=== PATIENT | female | born 1945 | race Caucasian/White ===

== ENCOUNTER 2017-01-14 20:52 | Emergency (ER) | payer MEDICARE, BC ==
[~2017-01-14] VITALS: Ht 157.5 cm; Wt 75.5 kg
[~2017-01-14 20:52] MED LIST: APIX5TAB PO; ASCO10007 PO; ASPI-557 PO; CA C1TAB98 PO; CHOL10003 PO; FLEC100T2 PO; LEVO75TA50 PO; MULT-1243 PO; ONDA4TAB4 PO; OXYC1TAB8 PO; PRAV20TA44 PO
[2017-01-14 20:55] VITALS: Ht 157.5 cm; Wt 75.5 kg
--- OUTSIDE RECORDS SUMMARY | 2017-01-14 20:57 | XMS REPORT | Referral Summary ---
Author Author [facility] Organization [facility] Address Unknown Phone Unavailable Care Team Providers Care Space Planner Name Role Phone Jolie Martinez Primary Care Physician [phone] Encounter VC Date(s): 09/23/16 - 09/23/16 [facility] [address] [place] [id number] Discharge Disposition: 01-Home or Self Care Attending Physician: Jeimy Martinez DO Admitting Physician: Jeimy Martinez DO Vital Signs No data available for this section Problem List Condition Effective Dates Status Health Status Informant Allergic rhinitis Active (disorder)(Confirmed ) Allergic Active rhinitis(Confirmed) Arthritis(Confirmed) Resolved Atrial fibrillation Resolved (disorder)(Confirmed ) Atrial Resolved fibrillation(Confirm ed) Presence of Active permanent cardiac pacemaker(Confirmed) Dyslipidemia(Confirm Active ed) Gastroesophageal Active reflux disease (disorder)(Confirmed ) GERD Active (gastroesophageal reflux disease)(Confirmed) Goiter(Confirmed) Active Chronic Active anticoagulation(Conf irmed) Hay fever(Confirmed) Active Hyperlipidemia(Confi Resolved rmed) Hypertension(Confirm Resolved ed) Hypothyroidism Active (disorder)(Confirmed ) Hypothyroidism(Confi Active rmed) Mixed Active hyperlipidemia(Confi rmed) Paroxysmal Active a-fib(Confirmed) Thyroid Resolved disease(Confirmed) Vitamin D Resolved deficiency(Confirmed ) Allergies, Adverse Reactions, Alerts Substance Reaction Severity Status acetaminophen-HYDROcodone upset stomach Active penicillin Adverse Reaction Active sulfamethoxazole Adverse Reaction Active Medications Aspir 81 81 mg, Oral, Daily, 0 Refill(s) Start Date: 02/03/14 Status: Ordered Citracal + D 3 caps, Oral, Daily, 0 Refill(s) Start Date: 02/03/14 Status: Ordered Eliquis 5 mg oral tablet See Instructions, TAKE 1 TABLET BY MOUTH TWICE DAILY, # 60 tabs, 6 Refill(s), eRx: [id number], TAKE 1 TABLET BY MOUTH TWICE DAILY Start Date: 12/30/15 Status: Ordered flecainide 100 mg oral tablet See Instructions, TAKE 1& 1/2 TABLETS BY MOUTH EVERY 12 HOURS, # 90 tabs, 4 Refill(s), [id number], TAKE 1& 1/2 TABLETS BY MOUTH EVERY 12 HOURS Start Date: 06/21/16 Status: Ordered levothyroxine 75 mcg (0.075 mg) oral tablet 75 mcg 1 tabs, Oral, Daily, # 30 tabs, 0 Refill(s) Start Date: 05/31/16 Status: Ordered multivitamin See Instructions, Take 1 table po Daily, 0 Refill(s) Start Date: 02/03/14 Status: Ordered Homeland 5 mg-325 mg oral tablet 1 tabs, Oral, q6hr, as needed for pain, # 15 tabs, 0 Refill(s) Start Date: 08/10/16 Status: Ordered pravastatin 20 mg oral tablet See Instructions, 1 TABS ORAL DAILY, # 90 tabs, 0 Refill(s), [facility] [id number], NO FURTHER REFILLS; NEEDS APPT WITH DR. MARTINEZ, 1 TABS ORAL DAILY Start Date: 06/17/16 Status: Ordered Vitamin C 1000 mg oral tablet 1 tabs, Oral, Daily, # 30 tabs, 0 Refill(s) Start Date: 02/03/14 Status: Ordered Vitamin D3 1000 intl units oral capsule 2,000 Intl_Units 2 caps, Oral, Daily, 0 Refill(s) Start Date: 02/03/14 Status: Ordered Results No data available for this section Immunizations Given and Recorded Vaccine Date Status Refusal Reason tetanus/diphth/pertuss (Tdap) adult/adol 12/30/15 Given Procedures Procedure Date Related Diagnosis Body Site Mammogram 01/09/16 Knee replacement - right 12/2011 Colonoscopy1 03/11/10 Knee replacement - left 2007 Appendectomy Hysterectomy w/BSO Implantation of cardiac pacemaker knee scope, right Tonsillectomy 1Normal except hemorrhoids. Dr. Ward at [facility] [place] Social History Social History Type Response Smoking Status Never smoker Assessment and Plan No data available for this section
--- OUTSIDE RECORDS SUMMARY | 2017-01-14 20:58 | XMS REPORT | Referral Summary ---
Author Author [facility] Organization [facility] Address Unknown Phone Unavailable Care Team Providers Care Curve Saw Operator Name Role Phone Jolie Martinez Primary Care Physician [phone] Encounter VC Date(s): 09/23/16 - 09/23/16 [facility] [address] [place] [id number] Discharge Disposition: 01-Home or Self Care Attending Physician: Andre Tavares MD Vital Signs Most recent to 1 oldest [Reference Range]: Peripheral Pulse 71 bpm Rate [60-100 bpm] (09/23/16 2:44 PM) Blood Pressure 134/86 mmHg [90-140/60-90 mmHg] (09/23/16 2:44 PM) Problem List Condition Effective Dates Status Health [...] DAILY, # 60 tabs, 6 Refill(s), eRx: [facility] ([place]) [id number], TAKE 1 TABLET BY MOUTH TWICE DAILY Start Date: 12/30/15 Status: Ordered flecainide 100 mg oral tablet See Instructions, TAKE 1& 1/2 TABLETS BY MOUTH EVERY 12 HOURS, # 90 tabs, 4 Refill(s), eRx: [facility] ([place]) [id number], TAKE 1& 1/2 TABLETS BY MOUTH EVERY 12 HOURS Start Date: 06/21/16 Status: Ordered levothyroxine 75 mcg (0.075 mg) oral tablet 75 mcg 1 tabs, Oral, Daily, # 30 tabs, 0 Refill(s) Start Date: 05/31/16 Status: Ordered multivitamin See Instructions, Take 1 table po Daily, 0 Refill(s) Start Date: 02/03/14 Status: Ordered Redrock 5 mg-325 mg oral tablet 1 tabs, Oral, q6hr, as needed for pain, # 15 tabs, 0 Refill(s) Start Date: 08/10/16 Status: Ordered pravastatin 20 mg oral tablet See Instructions, 1 TABS ORAL DAILY, # 90 tabs, 0 Refill(s), Pharmacy: [facility] ([place]) [id number], NO FURTHER REFILLS; NEEDS APPT WITH DR. [...] Tonsillectomy 1Normal except hemorrhoids. Dr. Ward at [facility] [place] Social History Social History Type Response Smoking Status Never smoker Assessment and Plan No data available for this section
--- OUTSIDE RECORDS SUMMARY | 2017-01-14 20:58 | XMS REPORT | Continuity of Care Document ---
Author Author [facility] Organization [facility] Address Unknown Phone Unavailable Support Name Relationship Address Phone ROMA SALES MD Caregiver [address] [place] [address] Unavailable GLENN GARCIA DO Caregiver Unknown Unavailable MAGDALENA WILSON Next Of Kin [address] [place] [address] Insurance Providers Guarantor Clari Wilson Address [address] [place] [address] Email [email or web address] [email or web address] Policy Number [id number] Subscriber's Name Clari Wilson Relationship 18 Self Group Number [id number] Payer Medicare Policy Number [id number] Subscriber's Name Clari Wilson Relationship 18 Self Advance Directives Directive Response Recorded Date/Time Ordered Resuscitation Status Full Code 10/05/16 2:08pm Resuscitation Documents on File No 10/06/16 6:12am DPOA for Healthcare Only No 10/06/16 6:12am Living Will No 10/06/16 6:12am Problems Past Problems Medical Problem Onset Date Dislocation, shoulder, anterior Unknown Medications Current Home Medications Medication Dose Units Route Directions Days Qty Instructions Start Date Apixaban (Eliquis) 5 Mg Tablet 5 Mg Oral Twice A Day 08/09/16 Ascorbic Acid (Vitamin C) 1,000 Mg Tablet 1 Tab Oral Daily Aspirin (Aspir 81) 81 Mg Tablet. 81 Mg Oral Daily 08/09/16 Ca Carbonate/Vitamin D3/Vit K (Citracal Soft Chew) 1 Each Tab.chew 1 Tab Oral Daily 08/09/16 Cholecalciferol (Vitamin D) 1,000 Unit Capsule 2,000 Unit Oral Daily 12/14/10 Flecainide Acetate 100 Mg Tablet 100 Mg Oral Three Times A Day Levothyroxine Sodium (Levoxyl) 75 Mcg Tablet 75 Mcg Oral Daily 04 /11/11 Multivits-Min/Fa/Lycopene/Lut (Centrum Silver Tablet) 1 Each Tablet 1 Tab Oral Daily 08/09/16 Ondansetron Hcl (Zofran) 4 Mg Tablet 4 Mg Oral Every 6 Hours as needed for Nausea 10 Tablet 10/06/16 Oxycodone Hcl/Acetaminophen (Percocet 5-325 Mg Tablet) 5-325 Tablet 5-10 Mg Oral Every 4 Hours Prn 60 Tablet 10/06/16 Pravastatin Sodium (Pravachol) 20 Mg Tablet 20 Mg Oral Daily 07/16 Past Home Medications Medication Directions Ordered Status Azithromycin (Pp-Azithromycin Zpack) 1 Pack Pp, 1 Pack Oral Daily 10/06/11 Discontinued Diltiazem Hcl (Diltiazem Er) 120 Mg Cap.sr.12h, 120 Mg Oral Daily 10/14/11 Discontinued Ibuprofen (Advil) 200 Mg Tablet, 400 Mg Oral Every 4 Hours as needed for Pain 08/09/16 Discontinued Red Krell , 1 Bedtime 10/14/11 Discontinued Warfarin Sodium 5 Mg Tablet, 5 Mg Oral Daily 10/14/11 Discontinued Social History Social History Problem Response Recorded Date/Time Onset Date Status Reason for Hospitalization SHOULDER SCOPE 10/06/2016 9:54am Not Applicable Not Applicable Chewing Tobacco Status No 10/27/2012 3:51pm Not Applicable Not Applicable Hx Substance Use No 10/06/2016 6:04am Not Applicable Not Applicable Hx Alcohol Use Y 1 PER MONTH 10/06/2016 6:04am Not Applicable Not Applicable Has the pt used tobacco in the last 12 months No 10/06/2016 6:04am Not Applicable Not Applicable Query Response Start Date Stop Date Smoking Status Never smoker Hospital Discharge Instructions Instructions: Care Instructions: I was in the hospital because (patient own words): SHOULDER SCOPE Discharge Diet: Resume normal diet as tolerated. Discharge Activity: Please refer to Dr. Sales's postoperative instructions. Follow Up Appointments: Please refer to Dr. Sales's postoperative instructions. Pending Lab / Results: No Pending Lab Expected Signs/Symptoms: Please refer to Dr. Sales's postoperative instructions. Notify Physician If: Please refer to Dr. Sales's postoperative instructions. During Business Hours:: Please call our office at [phone]. After Business Hours:: Please call the hospital at [phone] and have the physician or the covering physician paged. Pain Management/Treatment: Please refer to Dr. Sales's postoperative instructions. Wound/Incision Care: Please refer to Dr. Sales's postoperative instructions. Condition at time of discharge: Good Plan of Care Discharge Date 10/06/16 10:25am Instructions/Education Provided [facility] Janneth Rotator Cuff Prescriptions See Medication Section Functional Status No functional status results. Allergies, Adverse Reactions, Alerts Allergen Type Severity Reaction Status Last Updated hydrocodone bit Adverse Reaction Mild UPSET STOMACH Active 10/05/16 Penicillin Adverse Reaction Severe RASH Active 10/05/16 Sulfa (Sulfonamide Antibiotics) Adverse Reaction Unknown Active 10/05/16 Immunizations Query Response on File Recorded Date/Time Hx Influenza Vaccination No 10/06/16 6:04am Hx Pneumococcal Vaccination No 10/06/16 6:04am Hx Influenza Vaccination No 10/06/16 6:04am Influenza Vaccine Hx NO 08/09/16 7:42pm Tdap Vaccine Hx NO 08/09/16 7:43pm Vital Signs Acute Vital Signs Vital Response Date/Time Temperature (Fahrenheit) 96.8 deg F (96.8 - 99.1) 10/06/2016 9:30am Temperature (Calculated Celsius) 36.53778 degrees C (36.0 - 37.3) 10/06/2016 9:30am Temperature Source Temporal 10/06/2016 9:30am Pulse Rate (adult) 76 bpm (60 - 100) 10/06/2016 10:20am Respiratory Rate 20 breaths/min (10 - 20) 10/06/2016 10:20am O2 Sat by Pulse Oximetry 94 % (90 - 100) 10/06/2016 10:20am Oxygen Delivery Method Room Air 10/06/2016 7:07am Oxygen Delivery Method Room Air 10/06/2016 10:20am Oxygen Flow Rate 4.00 L/min 10/06/2016 9:00am Blood Pressure 130/75 mm Hg 10/06/2016 10:20am Blood Pressure Source Automatic Cuff 10/06/2016 10:20am Height (Feet) 5 feet 10/06/2016 5:45am Height (Inches) 2.25 inches 10/06/2016 5:45am Weight (Kilograms) 73.200 kg 10/06/2016 5:45am Body Mass Index (BMI) 29.3 10/06/2016 5:45am Results No known relevant diagnostic tests, laboratory data and/or discharge summary. Procedures Procedure Status Date Provider(s) Treat shoulder dislocation Completed 08/09/16 ROMA SALES MD X-ray exam of shoulder Completed 08/09/16 X-ray exam of shoulder Completed 08/09/16 Ther/proph/diag iv inf init Completed 08/09/16 Tx/pro/dx inj new drug addon Completed 08/09/16 Tx/pro/dx inj new drug addon Completed 08/09/16 Tx/pro/dx inj same drug medical staff services coordinator Completed 08/09/16 Emergency dept visit Completed 08/09/16 [id number]"INJECTION, HYDROMORPHONE, UP TO 4 MG" Completed 08/09/16 [id number]"INJECTION, HYDROMORPHONE, UP TO 4 MG" Completed 08/09/16 [id number]"INJECTION, ONDANSETRON HYDROCHLORIDE, PER 1 MG" Completed 08/09/16 [id number]"INFUSION, NORMAL SALINE SOLUTION , 250 CC" Completed 08/09/16 [id number] FITTING AND ADJUSTMENT Completed 08/09/16 Injection for shoulder x-ray Completed 09/08/16 Ct upper extremity w/dye Completed 09/08/16 Needle localization by xray Completed 09/08/16 [id number]"HIGH OSMOLAR CONTRAST MATERIAL, 250-299 MG/ML IODINE Completed Shoulder arthroscopy Completed 10/06/16 ROMA SALES MD Encounters Encounter Location Arrival/Admit Date Discharge/Depart Date Attending Provider Departed Surgical Day Care [facility] 10/06/16 5:16am 10/06/16 10 :25am ROMA SALES MD Registered Clinic [facility] 09/08/16 12:49pm ROMA SALES MD Departed Emergency Room [facility] 08/09/16 7:27pm 08/09/16 10: 00pm YOVANNY FAM MD
--- OUTSIDE RECORDS SUMMARY | 2017-01-14 20:58 | XMS REPORT | Continuity of Care Document ---
Author Author [facility] Organization [facility] Address Unknown Phone Unavailable Allergies Medications Problems Procedures Results Encounters ACCT No. Visit Date/Time Discharge Status Pt. Type Provider Facility Loc./Unit Complaint [id number] 11/23/2013 11:25:00 11/23/2013 23 :59:59 CLS Outpatient [id number] 10/23/2013 09:46:00 10/23/2013 23 :59:59 CLS Outpatient [id number] 09/07/2013 14:47:00 09/07/2013 23 :59:59 CLS Outpatient [id number] 08/07/2013 07:53:00 08/07/2013 23 :59:59 CLS Outpatient
--- OUTSIDE RECORDS SUMMARY | 2017-01-14 20:58 | XMS REPORT | Referral Summary ---
Author Author [facility] Organization [facility] Address Unknown Phone Unavailable Care Team Providers Care Boiler Operator Helper Name Role Phone Jolie Martinez Primary Care Physician [phone] Encounter Date(s): 09/24/16 - 09/24/16 [facility], [address] [place] [id number] Discharge Diagnosis: Supraspinatus tendon tear Discharge Diagnosis: Chronic anticoagulation Discharge Diagnosis: Pre-op exam Discharge Diagnosis: Presence of permanent cardiac pacemaker Discharge Disposition: -Home or Self Care Attending Physician: Jeimy Martinez DO Admitting Physician: Jeimy Martinez DO Referring Physician: Milo Lagunas MD Vital Signs Most recent to 1 oldest [Reference Range]: Temperature Tympanic 36.8 degC [36.6-38.1 degC] (09/24/16 3:45 PM) Peripheral Pulse 83 bpm Rate [60-100 bpm] (09/24/16 3:45 PM) Blood Pressure 128/80 mmHg [90-140/60-90 mmHg] (09/24/16 3:45 PM) SpO2 97 % (09/24/16 3:45 PM) Problem List Condition Effective Dates Status [...] DAILY, # 60 tabs, 6 Refill(s), eRx: [facility] [id number], TAKE 1 TABLET BY MOUTH TWICE DAILY Start Date: 12/30/15 Status: Ordered flecainide 100 mg oral tablet See Instructions, TAKE 1& 1/2 TABLETS BY MOUTH EVERY 12 HOURS, # 90 tabs, 4 Refill(s), eRx: [facility] [id number], TAKE 1& 1/2 TABLETS BY MOUTH EVERY 12 HOURS Start Date: 06/21/16 Status: Ordered levothyroxine 75 mcg (0.075 mg) oral tablet 75 mcg 1 tabs, Oral, Daily, # 30 tabs, 0 Refill(s) Start Date: 05/31/16 Status: Ordered multivitamin See Instructions, Take 1 table po Daily, 0 Refill(s) Start Date: 02/03/14 Status: Ordered pravastatin 20 mg oral tablet See Instructions, 1 TABS ORAL DAILY, # 90 tabs, 0 Refill(s), Pharmacy: [facility] [id number], NO FURTHER REFILLS; NEEDS APPT WITH DR. MARTINEZ, 1 TABS ORAL DAILY Start Date: 06/17/16 Status: Ordered Vitamin C 1000 mg oral tablet 1 tabs, Oral, Daily, # 30 tabs, 0 Refill(s) Start Date: 02/03/14 Status: Ordered Vitamin D3 1000 intl units oral capsule 2,000 Intl_Units 2 caps, Oral, Daily, 0 Refill(s) Start Date: 02/03/14 Status: Ordered Results Hematology Most recent to 1 oldest [Reference Range]: WBC [4.8-10.8 9.0 10*3/uL 10*3/uL] (09/24/16 4:38 PM) RBC [4.00-5.20] 4.50 (09/24/16 4:38 PM) Hgb [12.0-16.0 12.9 gm/dL gm/dL] (09/24/16 4:38 PM) Hct [37.0-47.0 %] 40.9 % (09/24/16 4:38 PM) MCV [82.0-99.0 fL] 90.9 fL (09/24/16 4:38 PM) MCH [27.0-32.0 pg] 28.7 pg (09/24/16 4:38 PM) MCHC [32.0-36.0 31.5 gm/dL gm/dL] *LOW* (09/24/16 4:38 PM) RDW [11.5-14.5 %] 14.4 % (09/24/16 4:38 PM) Platelet [150-400 250 10*3/uL 10*3/uL] (09/24/16 4:38 PM) MPV [8.8-14.8 fL] 11.5 fL (09/24/16 4:38 PM) Immature 0.2 % Granulocytes (09/24/16 4:38 PM) [0.0-1.0 %] Neutrophils [51-75 55 % %] (09/24/16 4:38 PM) Lymphocytes [20-46 27 % %] (09/24/16 4:38 PM) Monocytes [4-11 %] 9 % (09/24/16 4:38 PM) Eosinophils [0-4 %] 7 % *HI* (09/24/16 4:38 PM) Basophils [0-2 %] 1 % (09/24/16 4:38 PM) Neutro Absolute 4.97 [1.90-7.00] (09/24/16 4:38 PM) Lymph Absolute 2.43 [0.80-3.30] (09/24/16 4:38 PM) Meagher Absolute 0.82 [0.30-1.00] (09/24/16 4:38 PM) Eos Absolute 0.61 [0.00-0.50] *HI* (09/24/16 4:38 PM) Baso Absolute 0.13 [0.00-0.20] (09/24/16 4:38 PM) Chemistry Most recent to 1 oldest [Reference Range]: Sodium Lvl [135-144 142 mEq/L mEq/L] (09/24/16 4:38 PM) Potassium Lvl 4.3 mEq/L [3.5-5.2 mEq/L] (09/24/16 4:38 PM) Chloride [99-111 109 mEq/L mEq/L] (09/24/16 4:38 PM) CO2 [22-31 mEq/L] 24 mEq/L (09/24/16 4:38 PM) AGAP [3-20] 9 (09/24/16 4:38 PM) BUN [10-20 mg/dL] 22 mg/dL *HI* (09/24/16 4:38 PM) Glucose Lvl [70-99 84 mg/dL mg/dL] (09/24/16 4:38 PM) Creatinine Lvl 0.84 mg/dL [0.57-1.11 mg/dL] (09/24/16 4:38 PM) eGFR [>60 mL/min] >60 mL/min 1 (09/24/16 4:38 PM) Calcium Lvl 9.4 mg/dL [8.9-10.5 mg/dL] (09/24/16 4:38 PM) 1Result Comment: Multiply eGFR results by 1.21 for race. Immunizations Given and Recorded Vaccine Date Status Refusal Reason tetanus/diphth/pertuss (Tdap) adult/adol 12/30/15 Given Procedures Procedure Date Related Diagnosis Body Site Mammogram 01/09/16 Knee replacement - right 12/2011 Colonoscopy1 03/11/10 Knee replacement - left 2007 Appendectomy Hysterectomy w/BSO Implantation of cardiac pacemaker knee scope, right Tonsillectomy 1Normal except hemorrhoids. [place] [facility] [place] Social History Social History Type Response Smoking Status Never smoker Assessment and Plan No data available for this section
--- NOTE | 2017-01-14 21:19 | NUR ---
US SENIOR UX DESIGNER NOTIFIED OF NEED FOR US TECH. TO BE CALLED IN
--- NOTE | 2017-01-14 21:39 | NUR ---
US IN WITH PT
--- NOTE | 2017-01-14 21:50 | ERPDOC ---
Departure Disposition Decision Date: January 14, 2017 Disposition Decision Time: 22:33 Disposition: 01 DISCHARGED HOME, SELF-CARE Impression Impression Impression: Primary Impression: Leg pain, left Severity: Moderate Condition: Improved Seen By: Physician only Referrals: GLENN GARCIA DO (Family) 2 Days Patient Instructions: Leg Pain (ED) Problems/Meds/Labs Reviewed?: Yes Medications reviewed and manag: Yes Follow up care ordered?: Yes Mental Status: Alert, Oriented HPI - General Medical General Chief Complaint: Lower Extremity Pain Stated Complaint: SWOLLEN LEFT LEG Time Seen by Provider: 21:09 Source: patient Exam Limitations: no limitations HPI - General Medical Initial Comments 71-year-old female presents to the emergency department with a chief complaint of pain in her left calf. Patient noted onset of symptoms 2 weeks ago. Patient believes she may have felt her calf stretch while walking on her stairs. She denies any other trauma or injury. Patient describes her pain as moderate. It is sharp. There is no radiation. She notes that it increases with ambulation and improves with rest and positioning. She denies any other complaints or associated symptoms. No history of DVT. She has been compliant with her Eliquis regimen for her atrial fibrillation. Occurred At: home Onset: Gradual Allergies: Coded Allergies: Penicillins (Verified Adverse Reaction, Severe, RASH , 10/05/16) PER H&P hydrocodone bit (Verified Adverse Reaction, Mild, UPSET STOMACH, 10/05/16) Sulfa (Sulfonamide Antibiotics) (Verified Adverse Reaction, Unknown, ) PER H&P Past History Past Medical History Metabolic: hypercholesterolemia, hypothyroidism, other Cardiac: A-fib GI: GERD Musculoskeletal: osteoarthritis Surgical History Denies Surgeries Joint: knee Family History Family History: Negative Vaccines Hx Influenza Vaccination: No Hx Pneumococcal Vaccination: No Social History Smoking Status: Never smoker Does patient use chewing tobac: No Second Hand Exposure: No Substance Use Type: does not use Alcohol Intake: none Housing: house Current Occupational Status: retired Review of Systems Constitutional Constitutional: DENIES: chills, fever Eyes General: DENIES: erythema, exudate Lids/Accessories: DENIES: erythema, swelling Vision: DENIES: acuity, blurring ENMT Ears: DENIES: drainage, erythema Hearing: DENIES: hearing loss Balance: DENIES: ataxia, falling to one side Sinuses: DENIES: congestion, pain Nose: DENIES: nosebleeds, pain Mouth/Throat: DENIES: painful swallowing, sore throat Teeth: DENIES: pain Jaw: DENIES: pain Cardiovascular Cardiac: DENIES: chest pain, dyspnea on exertion Rhythm/Rate: DENIES: irregular beat, palpitations Vascular: DENIES: pedal edema, unilateral swelling Pulmonary Respiratory: DENIES: cough, dyspnea, pleuritic chest pain, sputum GI Upper Abdomen: DENIES: nausea, pain, vomiting Lower Abdomen: DENIES: diarrhea, pain General: DENIES: dysuria, frequency, urgency Musculoskeletal General: tenderness, DENIES: joint pain Integumentary Skin: DENIES: itching, rash Neurological General: DENIES: change in strength, headache, numbness, weakness Psychiatric Psychiatric: DENIES: emotional instability, nervousness, suicidal ideation/ attempt Endocrine Endocrine: DENIES: polydipsia, polyphagia Hematologic/Lymphatic Hematologic/Lymphatic: DENIES: frequent nosebleeds, lymphadenopathy Allergic/Immunological Allergic/Immunoligical: DENIES: allergic reactions, hives Physical Exam General General Nourishment: well nourished, well developed, appears stated age, no acute distress, adult General Body Habitus: well groomed Vitals and Pain First Documented Vital Signs Date Time Temp Pulse Resp B/P Pulse Ox O2 Delivery O2 Flow Rate FiO2 01/14/17 20:55 98.4 80 20 130/66 98 Room Air Weight: Kilograms: 75.500 Height (feet): 5 Height (inches): 2.00 Triage Pain Scale: RN VS reviewed by Provider: Yes Normal Exams: Head: Normocephalic w/o trauma Eyes: Pupils are PERRLA w/ EOMI, No scleral icterus, irritation, or foreign bodies noted ENMT: No facial trauma, nasal exudates, pharyngeal erythema, or exudates are noted Dental: No fractured, loose, or missing teeth noted Neck: Full range of motion, without adenopathy, JVD, bruits or thyromegaly Chest/Resp: Clear all cabrera, with good airflow, and symmetry bilaterally CV: Regular rate and rhythm, without murmur or gallop, Pulses 2+ all extremities, capillary refill, <2 seconds all ext., no pedal edema noted Abdomen: Bowel sounds positive, soft, non-tender, non-distended, no hepatosplenomegaly, masses or bruits noted Lymphatic: No lymphadenopathy, or lymphedema noted Musculoskeletal: No tenderness, or deformity noted, good range of motion, all extremities Integumentary: No rashes, hives, or bruising noted, hair and nails, without abnormality Neurologic: Patient is alert, and oriented, cranial nerves, motor/sensory/ cerebellar, exams w/o gross deficits, to observation Psychiatric: Patient exhibits, appropriate attention, emotion and affect Musculoskeletal (brief) Comments Mild tenderness to palpation of the left calf without any focal bony tenderness. Pulses are intact. Sensation intact. Capillary refill less than 2. Full range of motion. No other tenderness in the left lower extremity. No erythema. No edema. No tenderness over the Achilles tendon. Negative Paris test. All other extremities are unremarkable. Differential Diagnoses Considering: Other (DVT/Calf strain/Contusion/Bakers Cyst) Progress Results/Orders Orders Procedure Category Date Status Time Us Venous Duplex, US 01/14/17 Taken Lower Ext Lt 21:31 Progress Progress Imaging is discussed in detail with the patient and questions are answered. Patient declines offered analgesic pain medication in the emergency Department. Patient is discharged home in improved condition. She is to follow up as instructed. Patient is to return to the emergency Department if her condition worsens or changes in any manner. Patient is in agreement with the current plan of management. Patient is to continue to use [id number] analgesic pain medication as needed for pain control. She is counseled regarding the need for follow-up with her primary care physician for further evaluation of the left calf. Ultrasound US : Ultrasound: Venous Doppler Interpretation: Abnormal (no DVT. Complex area in the medial popliteal fossa extending to the medial calf which is possibly a complicated Wyman's cyst. ), Faxed Report HOMERO DIAZ DO January 14, 2017 21:50
--- OUTSIDE RECORDS SUMMARY | 2017-01-14 22:14 | XMS REPORT | Continuity of Care Document ---
Author Author [facility] Organization [facility] Address Unknown Phone Unavailable Allergies Medications Problems Procedures Results Encounters ACCT No. Visit Date/Time Discharge Status Pt. Type Provider Facility Loc./Unit Complaint [id number] 11/23/2013 11:25:00 11/23/2013 23 :59:59 [facility] Outpatient [id number] 10/23/2013 09:46:00 10/23/2013 23 :59:59 [facility] Outpatient [id number] 09/07/2013 14:47:00 09/07/2013 23 :59:59 [facility]LS Outpatient [id number] 08/07/2013 07:53:00 08/07/2013 23 :59:59 CLS Outpatient
[2017-01-14 22:40] VITALS: BP 130/66; PULSE 80; RESP 20; TEMP 98.4; O2SAT 98
--- NOTE | 2017-01-16 10:28 | DI ---
Indication: ITS.REASON: PAIN/SWELLING PROCEDURE: US VENOUS DUPLEX, LOWER EXT LT: Encounter: Initial Comparison: None Technique: Color Doppler duplex and grayscale sonographic imaging of the left lower extremity was performed. Findings: There is no evidence for acute deep venous thrombosis in the left thigh. Specifically, serial graded compression was performed from the inguinal ligament to the popliteal bifurcation, on the left thigh, demonstrating appropriate compressibility of the deep venous system. In addition, color and pulsed Doppler demonstrate appropriate spontaneous flow, variation with respiration, and augmentation with calf compression. At the ankle, normal flow is identified in the posterior tibial veins; these vessels are also normal in caliber. Probable complex ruptured Wyman's cyst or hematoma in the calf area of pain. Impression: No evidence of acute DVT in the left lower limb. There is a preliminary report by [facility]. .
== END 2017-01-14 22:40 | disposition home or self-care (01) ==
LOC: ED 20:52
DX: M79.662 Pain in left lower leg (principal); I48.91 Unspecified atrial fibrillation; Z79.01 Long term (current) use of anticoagulants